=== PATIENT | male | born 1950 | race Caucasian/White ===

== ENCOUNTER 2018-04-09 13:56 | Inpatient (IN) | payer MEDICARE ==
[2018-04-09 14:51] LABS: ADD MAN DIFF? NO
[2018-04-09 15:02] LABS: ANION GAP 13 (8-16); BLOOD UREA NITROGEN 27 mg/dl (7-20); CALCIUM 8.5 mg/dl (8.4-10.2); CARBON DIOXIDE 28 mmol/L (21-31); CHLORIDE 103 mmol/L (97-110); CHOL/HDL RATIO 4.2 RATIO; CHOLESTEROL 178 mg/dl (100-200); CREATININE 0.93 mg/dl (0.61-1.24); GLUCOSE 354 mg/dl (70-220); HDL CHOLESTEROL 42 mg/dl (30-78); LDL CHOLESTEROL,CALCULATED 96 mg/dl; POTASSIUM 4.6 mmol/L (3.5-5.1); SODIUM 139 mmol/L (135-144); TRIGLYCERIDES 202 mg/dl (0-149)
[2018-04-09 15:09] LABS: HEMATOCRIT 37.7 % (42.0-52.0); HEMOGLOBIN 12.8 g/dl (14.0-18.0); RED BLOOD COUNT 4.22 10^6/ul (4.70-6.10)
[2018-04-09 15:09] LABS: WHITE BLOOD COUNT 6.8 10^3/ul (4.8-10.8)
[2018-04-09 15:10] LABS: BASOPHILS % 0.6 % (0.0-2.0); EOSINOPHILS % 1.3 % (0.0-7.0); LYMPHOCYTES % 25.7 % (15.0-51.0); MEAN CORPUSCULAR HEMOGLOBIN 30.3 pg (29.0-33.0); MEAN CORPUSCULAR VOLUME 89.3 fl (82.0-101.0); MONOCYTES % 7.8 % (0.0-11.0); NEUTROPHILS % 64.5 % (39.0-77.0); PLATELET COUNT 141 10^3/UL (140-415); RED CELL DISTRIBUTION WIDTH 12.3 % (11.5-14.5)
[2018-04-09 15:13] LABS: EOSINOPHILS # 0.1 10^3/ul (0.0-0.5); LYMPHOCYTES # 1.7 10^3/ul (0.8-2.9); MONOCYTE # 0.5 10^3/ul (0.3-0.9); NEUTROPHIL # 4.4 10^3/ul (1.6-7.5)
[2018-04-09 15:15] LABS: TROPONIN-I < 0.012 ng/ml (0.000-0.120)
[2018-04-09 15:16] LABS: INR 0.97
[2018-04-09 15:17] LABS: PARTIAL THROMBOPLASTIN TIME 30.3 Sec (25.0-35.0)
[2018-04-09] MEDS: SOD CHLORIDE 0.9% 100 ML (15:35)
[2018-04-09] MEDS: IOHEXOL 100 ML (15:35)
[2018-04-09] MEDS: IOHEXOL 350MG/ML 50 ML BTL (15:35)
[2018-04-09 16:00] LABS: HEMOGLOBIN A1C 9.2 % (0-5.9)
[2018-04-09] MEDS: SOD CHLORIDE 0.9% 1,000 ML IV (16:24)
[2018-04-09] MEDS ORDERED: DOCUSATE SODIUM 100 MG CAP PO (16:30)
[2018-04-09] MEDS ORDERED: OXYCODONE/ACETAMINOPHEN (5/325) TAB PO (16:30)
[2018-04-09] MEDS ORDERED: NACL 0.9% 3 ML SYG IV (16:30)
[2018-04-09] MEDS ORDERED: ONDANSETRON 4 MG INJ IV ×2 (16:30)
[2018-04-09] MEDS ORDERED: LORAZEPAM 2 MG INJ IV (16:30)
[2018-04-09] MEDS ORDERED: MAGNESIUM HYDROXIDE 30ML CUP PO (16:30)
[2018-04-09] MEDS ORDERED: BISACODYL (EC) 5 MG TAB PO (16:30)
[2018-04-09] MEDS ORDERED: ACETAMINOPHEN 325 MG TAB PO ×2 (16:30)
[2018-04-09] MEDS ORDERED: LABETALOL HCL 20MG INJ IV (17:00)
[2018-04-09] MEDS ORDERED: GLUCOSE GEL 15 GRAM TUBE BUCCAL (17:30)
[2018-04-09] MEDS ORDERED: GLUCOSE GEL 15 GRAM TUBE PO ×2 (17:30)
[2018-04-09] MEDS ORDERED: DEXTROSE 50% 50 ML SYRINGE IV ×2 (17:30)
[2018-04-09] MEDS ORDERED: GLUCAGON 1 MG INJ IM (17:30)
[2018-04-09 17:50] LABS: ADD UMIC NO; UR ASCORBIC ACID NEGATIVE (NEGATIVE); UR BILIRUBIN (Dip) NEGATIVE (NEGATIVE); UR BLOOD (Dip) NEGATIVE (NEGATIVE); UR CLARITY CLEAR (CLEAR); UR COLOR YELLOW (YELLOW); UR GLUCOSE (Dip) 3+ mg/dL (NEGATIVE); UR KETONES (Dip) NEGATIVE (NEGATIVE); UR LEUKOCYTE ESTERASE (Dip) NEGATIVE Leu/ul (NEGATIVE); UR NITRITE (Dip) NEGATIVE (NEGATIVE); UR SPECIFIC GRAVITY (Dip) 1.028 (1.003-1.030); UR TOTAL PROTEIN (Dip) NEGATIVE (NEGATIVE); UR UROBILINOGEN (Dip) NEGATIVE (NEGATIVE)
[2018-04-09] MEDS: INSULIN ASPART [NOVOLOG] 3 ML PEN SC ×4 (18:00→23:50)
[2018-04-09 18:02] LABS: AMPHETAMINE/METHAMPHETAMINE Negative (NEGATIVE); BARBITURATES Negative (NEGATIVE); BENZODIAZEPINES Negative (NEGATIVE); CANNABINOIDS Negative (NEGATIVE); COCAINE Negative (NEGATIVE); OPIATES Negative (NEGATIVE)
[2018-04-09] MEDS: ATORVASTATIN 80 MG TAB PO (20:00)
[2018-04-09] MEDS: INSULIN GLARGINE [LANtus] 3 ML PEN SC (22:52)
[2018-04-10] MEDS: ACCU-CHEK XX (02:14)
[2018-04-10 07:35] LABS: ADD MAN DIFF? NO
[2018-04-10 07:38] LABS: WHITE BLOOD COUNT 7.5 10^3/ul (4.8-10.8)
[2018-04-10 07:38] LABS: BASOPHILS % 0.5 % (0.0-2.0); EOSINOPHILS # 0.1 10^3/ul (0.0-0.5); EOSINOPHILS % 1.3 % (0.0-7.0); HEMATOCRIT 36.1 % (42.0-52.0); HEMOGLOBIN 12.1 g/dl (14.0-18.0); LYMPHOCYTES # 2.2 10^3/ul (0.8-2.9); LYMPHOCYTES % 29.3 % (15.0-51.0); MEAN CORPUSCULAR HGB CONC 33.5 g/dl (32.0-37.0); MEAN CORPUSCULAR VOLUME 89.6 fl (82.0-101.0); MEAN PLATELET VOLUME 12.9 fl (7.4-10.4); MONOCYTE # 0.7 10^3/ul (0.3-0.9); MONOCYTES % 8.9 % (0.0-11.0); NEUTROPHIL # 4.5 10^3/ul (1.6-7.5); NEUTROPHILS % 59.6 % (39.0-77.0); PLATELET COUNT 134 10^3/UL (140-415); RED BLOOD COUNT 4.03 10^6/ul (4.70-6.10); RED CELL DISTRIBUTION WIDTH 12.4 % (11.5-14.5)
[2018-04-10] MEDS: INSULIN ASPART [NOVOLOG] 3 ML PEN SC ×8 (07:55→21:00)
[2018-04-10 08:02] LABS: ALANINE AMINOTRANSFERASE 35 IU/L (13-69); ALBUMIN 3.5 g/dl (3.3-4.9); ALBUMIN/GLOBULIN RATIO 0.97; ALKALINE PHOSPHATASE 98 IU/L (42-121); ANION GAP 13 (8-16); ASPARTATE AMINO TRANSFERASE 19 IU/L (15-46); BILIRUBIN,INDIRECT 0.3 mg/dl (0-1.1); BILIRUBIN,TOTAL 0.3 mg/dl (0.2-1.3); BLOOD UREA NITROGEN 21 mg/dl (7-20); CALCIUM 8.4 mg/dl (8.4-10.2); CARBON DIOXIDE 25 mmol/L (21-31); CHLORIDE 109 mmol/L (97-110); CREATININE 0.86 mg/dl (0.61-1.24); GLUCOSE 98 mg/dl (70-220); MAGNESIUM 2.2 mg/dl (1.7-2.5); POTASSIUM 3.9 mmol/L (3.5-5.1); SODIUM 143 mmol/L (135-144); TOTAL PROTEIN 7.1 g/dl (6.1-8.1)
[2018-04-10] MEDS: ASPIRIN 81 MG TAB PO (08:18)
[2018-04-10] MEDS: CLOPIDOGREL 75 MG TAB PO (11:04)
[2018-04-10] MEDS: SOD CHLORIDE 0.9% 1,000 ML IV (12:09)
[2018-04-10] MEDS: ATORVASTATIN 40 MG TAB PO (20:37)
[2018-04-10] MEDS: INSULIN GLARGINE [LANtus] 3 ML PEN SC (20:42)
[2018-04-10] MEDS ORDERED: ATORVASTATIN 80 MG TAB PO (21:00)
[2018-04-10 22:36] LABS: RAPID PLASMA REAGIN NONREACTIVE (NR)
[2018-04-11] MEDS: ACCU-CHEK XX (02:00)
[2018-04-11] MEDS: INSULIN ASPART [NOVOLOG] 3 ML PEN SC ×4 (07:55→11:50)
[2018-04-11] MEDS: SOD CHLORIDE 0.9% 1,000 ML IV (08:24)
[2018-04-11] MEDS: CLOPIDOGREL 75 MG TAB PO (08:29)
== END 2018-04-11 13:45 | disposition home or self-care (01) | DRG 66 ==
LOC: E/R 13:56 → TEL 16:02
PROVIDERS: Internal Medicine
DX: I63.9 Cerebral infarction, unspecified (principal); I10 Essential (primary) hypertension; M25.78 Osteophyte, vertebrae; E11.65 Type 2 diabetes mellitus with hyperglycemia; Z79.82 Long term (current) use of aspirin
CPT/HCPCS: 70450; 70496; 70498; 70544; 70551; 71045; 72141; 80048; 80053; 80061; 80307; 81003; 82962; 83036; 83735; 84484; 85025; 85610; 85730; 86592; 92610; 93005; 93306; 96372; 97161; 97165; 99291-25

== ENCOUNTER 2018-10-03 07:43 | Day surgery (SDC) | payer MEDICARE ==
[~2018-10-03 07:43] MED LIST: BALANCED SALT SOLN 15 ML OPH IRRIG
[2018-10-03] MEDS: LACTATED RINGER'S 1,000 ML IV (08:18)
[2018-10-03] MEDS: CYCLOPENTOLATE 1% 2 ML OPH OPER (08:19)
[2018-10-03] MEDS: LIDOCAINE 3.5% GEL TUBE OPER (08:19)
[2018-10-03] MEDS: BROMFENAC SODIUM 1.7 ML OPH DROP OPER (08:19)
[2018-10-03] MEDS: MOXIFLOXACIN 0.5% 3 ML OPH OPER (08:19)
[2018-10-03] MEDS: TETRACAINE 0.5% 4 ML OPH OPER (08:19)
[2018-10-03] MEDS ORDERED: PROPOFOL 20 ML (08:36)
[2018-10-03] MEDS ORDERED: GLYCOPYRROLATE 1 MG INJ (08:36)
[2018-10-03] MEDS ORDERED: MIDAZOLAM 1 MG/ML 2 ML INJ (08:36)
[2018-10-03] MEDS ORDERED: NEOSTIGMINE 3 MG/3 ML SYRINGE (08:36)
[2018-10-03] MEDS ORDERED: LIDOCAINE 2% (SDV) 5 ML INJ (08:36)
[2018-10-03] MEDS ORDERED: ROCURONIUM 50 MG INJ (08:36)
[2018-10-03] MEDS ORDERED: FENTAnyl 50 MCG/ML VIAL (08:36)
[2018-10-03] MEDS ORDERED: ONDANSETRON 4 MG INJ (08:37)
[2018-10-03] MEDS ORDERED: DEXAMETHASONE 4 MG/ML 1 ML INJ (08:37)
[2018-10-03 08:56] LABS: ADD MAN DIFF? NO
[2018-10-03 09:00] LABS: BASOPHIL # 0.1 10^3/ul (0.0-0.1); BASOPHILS % 0.7 % (0.0-2.0); EOSINOPHILS # 0.1 10^3/ul (0.0-0.5); EOSINOPHILS % 1.6 % (0.0-7.0); HEMATOCRIT 35.9 % (42.0-52.0); LYMPHOCYTES # 2.1 10^3/ul (0.8-2.9); LYMPHOCYTES % 30.2 % (15.0-51.0); MEAN CORPUSCULAR HEMOGLOBIN 29.6 pg (29.0-33.0); MEAN CORPUSCULAR HGB CONC 33.4 g/dl (32.0-37.0); MEAN CORPUSCULAR VOLUME 88.4 fl (82.0-101.0); MEAN PLATELET VOLUME 12.8 fl (7.4-10.4); MONOCYTE # 0.7 10^3/ul (0.3-0.9); MONOCYTES % 9.2 % (0.0-11.0); NEUTROPHIL # 4.1 10^3/ul (1.6-7.5); PLATELET COUNT 137 10^3/UL (140-415); RED BLOOD COUNT 4.06 10^6/ul (4.70-6.10); RED CELL DISTRIBUTION WIDTH 12.7 % (11.5-14.5)
[2018-10-03 09:18] LABS: ANION GAP 11 (5-13); BLOOD UREA NITROGEN 16 mg/dl (7-20); CALCIUM 9.1 mg/dl (8.4-10.2); CARBON DIOXIDE 26 mmol/L (21-31); CHLORIDE 104 mmol/L (97-110); CREATININE 0.88 mg/dl (0.61-1.24); Estimated GFR > 60 mL/min (>60); GLUCOSE 160 mg/dl (70-220); POTASSIUM 4.5 mmol/L (3.5-5.1); SODIUM 141 mmol/L (135-144)
[2018-10-03] MEDS: LIDOCAINE 1%/EPI 30 ML INJ (09:46)
[2018-10-03] MEDS ORDERED: TOBRAMYCIN/DEXAMETH 2.5 ML OPH (09:46)
== END 2018-10-03 12:10 | disposition home or self-care (01) ==
LOC: SDS 07:43
DX: H11.052 Peripheral pterygium, progressive, left eye (principal); E11.9 Type 2 diabetes mellitus without complications; E78.5 Hyperlipidemia, unspecified; R94.31 Abnormal electrocardiogram [ECG] [EKG]
CPT/HCPCS: 65426; 71045; 80048; 82962; 85025; 93005